=== PATIENT | female | born 1970 | race African-American/Black ===

== ENCOUNTER 2018-05-05 04:36 | Emergency (ER) | payer MEDICAID, OTHER ==
[2018-05-05] MEDS ORDERED: diphenhydrAMINE 50 MG/ML VIAL ONE (05:27)
== END 2018-05-05 07:51 | disposition home or self-care (01) ==
LOC: MADERS 04:36
DX: F41.9 Anxiety disorder, unspecified (principal); E11.9 Type 2 diabetes mellitus without complications; I50.9 Heart failure, unspecified
CPT/HCPCS: 99283; J1200